=== PATIENT | male | born 1950 | race African-American/Black ===

== ENCOUNTER → 2017-10-09 | Outpatient (CLI) | payer OTHER ==
--- NOTE | 2017-10-09 14:36 | KCIC ---
Indication: Left ankle and foot swelling. Time of exam 12:56 PM 3 views of the left ankle were obtained. Diffuse soft tissue swelling is noted. Ankle mortise is well maintained. The talar dome is smooth. No fracture or dislocation is identified. There are vascular calcifications present. IMPRESSION: Soft tissue swelling. No acute bony abnormality is detected. Electronically signed by: Nazario Lerner MD (10/09/2017 2:33 PM) [id number]
--- NOTE | 2017-10-09 14:39 | KCIC ---
Indication: Left foot swelling. Time of exam 1:02 PM Multiple views of the left foot were obtained. There is dorsal soft tissue swelling. The metatarsals and phalanges appear intact. Midfoot and hindfoot are unremarkable. No fractures are seen. There are vascular calcifications. IMPRESSION: Soft tissue swelling. No acute bony abnormality is detected. Electronically signed by: Nazario Lerner MD (10/09/2017 2:35 PM) [id number]
== END | disposition home or self-care (01) ==
LOC: KCIC 12:39
PROVIDERS: ATTEND Family Medicine
DX: M79.89 Other specified soft tissue disorders (principal); M25.472 Effusion, left ankle
CPT/HCPCS: 73610; 73630

== ENCOUNTER 2021-07-06 10:30 | Emergency (ER) | payer MEDICARE, OTHER ==
[~2021-07-06] VITALS: Ht 180.3 cm; Wt 75.5 kg
--- NOTE | 2021-07-06 11:38 | RAD ---
Chest AP. HISTORY: Syncopal episode, seizure-like activity AP view was taken of the chest. Heart is normal in size. There is no pleural effusion. There is an ev entration of the right diaphragm. There are no confluent infiltrates. There is arthritis in both shou lders. There is a density behind the heart probably a hiatus hernia. IMPRESSION: 1. Retrocardiac density possible hiatus hernia. 2. No acute infiltrates. Electronically signed by: Sedrick Pepe MD (07/06/2021 11:36 AM) [facility]
--- NOTE | 2021-07-06 11:59 | RAD ---
CT HEAD AND C-SPINE WO Date: 07/06/2021 11:22 AM Clinical Indication: Fall yesterday left scalp contusion, seizure-like activity today , pain Comparison: None. Technique: CT of the head and cervical spine were obtained of the head without contrast. These were v iewed on brain and bone windows. One or more of the following dose reduction techniques were utilized : Automated exposure control (AEC), Adjustment of mA and/or kV according to patient size, Use of iter ative reconstruction technique such as ASiR, CT scan done according to ALARA and image gently/image w isely FINDINGS: Head: Mild generalized cerebral and cerebellar volume loss. Mild nonspecific periventricular hypoattenuatio n, most commonly seen with chronic small vessel ischemic disease. Calcified atherosclerosis of the bi lateral cavernous and paraclinoid internal carotid arteries and intracranial vertebral arteries. Large area of right MCA territory encephalomalacia with ex vacuo dilatation of the right lateral vent ricle. No intra- or extra-axial mass or fluid collection. No acute hemorrhage. The guerin-white matter junctio n is normal. The subarachnoid cisterns are patent. The visualized paranasal sinuses are normal. The visualized portions of the orbits and globes are no rmal. The mastoid air cells are clear. Spine: The cervical spine is normally aligned. Postsurgical changes of ACDF at C5-6. No acute fracture. No a ggressive lytic or blastic osseous lesions. Severe multilevel degenerative disc space height loss. Multilevel mild and moderate spinal canal sten osis secondary to disc protrusions and marginal osteophytes. Multilevel moderate to severe neuroforam inal narrowing secondary to uncovertebral arthrosis. Multilevel moderate to severe facet arthrosis. The thyroid gland is normal. No cervical lymphadenopathy. Bilateral carotid atherosclerosis, heavy on the right. The visualized aerodigestive tract is normal. The visualized portions of the lungs are clear. Impression: 1. No acute intracranial process. 2. No acute cervical spine fracture. 3. Large area of right MCA territory encephalomalacia with ex vacuo dilatation of the right lateral v entricle. Electronically signed by: Jacques Trejo MD (07/06/2021 11:57 AM) [id number]
--- NOTE | 2021-07-06 12:25 | EKG ---
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
--- NOTE | 2021-07-06 12:51 | PHYS DOC ---
Past Medical History Additional Past Medical Histor: HEPATITIS C, EPILEPSY, ULCERATIVE COLITIS (NAEEM MONTES APRN) Past Surgical History: No Surgical History (NAEEM MONTES APRN) Smoking Status: Unknown if ever smoked Alcohol Use: None (NAEEM MONTES APRN) Attending Signature I have participated in the care of this patient and I have reviewed and agree with all pertinent clinical information above including history, exam, and recommendations. (ANDERSON LEO DO) General Adult EDM: Chief Complaint: SEIZURE HPI: HPI: Patient is a 71 year old male who presents emergency department via EMS with reports of seizure x3 at the detention. EMS career guidance counselor reports patient is not postictal, did not lose bowel or bladder. Had a reported focal seizure that lasted an unknown period of time. Card Cutter Helper reports that detention staff were unable to determine how long he was in the state. Patient is currently alert and oriented x3, reports he remembers being pushed in his wheelchair when he "I blanked out...I woke up in my bed". Patient denies headaches, fever chills, chest pain, abdominal pain, nausea, vomiting, or diarrhea. Patient reports he had a stroke several years ago that affected his left arm and leg and is unable to ambulate, reports using a wheelchair to travel. Patient denies any physical complaints or physical concerns. Patient has a history of [place] seizures and focal seizures Patient does report falling yesterday and striking the left side of his head against the floor. Denies loss of consciousness. States he has a bump on the left side of his head. Denies head or neck pain at this time. 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 (NAEEM MONTES APRN) Review of Systems: Review of Systems: 14 body systems of review of systems have been reviewed. See HPI for pertinent positives and negative responses, otherwise all other systems are negative, nonpertinent or noncontributory. Constitutional: Negative except as outlined in HPI above. Skin: Negative except as outlined in HPI above. Eyes: Negative except as outlined in HPI above. HENT: Negative except as outlined in HPI above. Respiratory: Negative except as outlined in HPI above. Cardiovascular: Negative except as outlined in HPI above. GI: Negative except as outlined in HPI above. : Negative except as outlined in HPI above. Musculoskeletal: Negative except as outlined in HPI above. Integument: Negative except as outlined in HPI above. Neurologic: Negative except as outlined in HPI above. Endocrine: Negative except as outlined in HPI above. Lymphatic: Negative except as outlined in HPI above. Psychiatric: Negative except as outlined in HPI above. (NAEEM MONTES APRN) Heart Score: C/O Chest Pain: No Risk Factors: Risk Factors: DM, Current or recent (<one month) smoker, HTN, HLP, family history of CAD, obesity. Risk Scores: Score 0 - 3: 2.5% MACE over next 6 weeks - Discharge Home Score 4 - 6: 20.3% MACE over next 6 weeks - Admit for Clinical Observation Score 7 - 10: 72.7% MACE over next 6 weeks - Early Invasive Strategies (NAEEM MONTES APRN) Allergies: Allergies: Allergies Coded Allergies Type Severity Reaction Last Updated Verified lactose Adverse Reaction Unknown 07/06/21 Yes (NAEEM MONTES APRN) Physical Exam: PE: Constitutional: Well developed, well nourished, no acute distress, non-toxic appearance. 71-year-old male in no apparent distress. HENT: Normocephalic, atraumatic. Eyes: Conjunctiva normal, no discharge. Neck: Normal range of motion, no stridor. Cardiovascular: No cyanosis appreciated, distal cap refill less than 2 seconds. Lungs & Thorax: Patient is in no respiratory distress, no audible adventitious lung sounds appreciated. Abdomen: Nontender, no abnormalities noted. Skin: Warm, dry, no erythema, no rash. Back: No tenderness, no deformities. Extremities: No tenderness, no cyanosis, no clubbing, ROM intact, no edema. Except for left upper and lower extremity contractures related to old CVA. Neurologic: Alert and oriented X 3, normal motor function, normal sensory f unction, no focal deficits noted. Psychologic: Affect normal, judgement normal, mood normal. (NAEEM MONTES APRN) Current Patient Data: Vital Signs: Vital Signs Date Time Temp Pulse Resp B/P (MAP) Pulse Ox O2 Delivery O2 Flow Rate FiO2 07/06/21 10:30 98.2 92 20 130/73 95 Room Air 98.2 (NAEEM MONTES APRN) EKG: EKG: EKG performed at 1203 by ED nursing staff shows a normal sinus rhythm without other ectopy, heart rate is 78 bpm, [place] interval 0.174, QTc interval 0.501, no acute STEMI, no ACS, no acute ischemia appreciated, EKG interpreted by ED attending physician Dr. Leo (NAEEM MONTES APRN) Radiology/Procedures: Radiology/Procedures: PATIENT: SCOTT HE EACCOUNT: [id number] : 1950 LOCATION: ER AGE: 71 SEX: M EXAM STATUS: REG ER ORD. PHYSICIAN: NAEEM MONTES APRN REASON: Seizure-like activity/syncopal episode PROCEDURE: CHEST AP ONLY Chest AP. HISTORY: Syncopal episode, seizure-like activity AP view was taken of the chest. Heart is normal in size. There is no pleural effusion. There is an eventration of the right diaphragm. There are no confluent infiltrates. There is arthritis in both shoulders. There is a density behind the heart probably a hiatus hernia. IMPRESSION: 1. Retrocardiac density possible hiatus hernia. 2. No acute infiltrates. PROCEDURE: CT HEAD AND CERVICAL SPINE WO CT HEAD AND C-SPINE WO Date: 07/06/2021 11:22 AM Clinical Indication: Fall yesterday left scalp contusion, seizure-like activity today , pain Comparison: None. Technique: CT of the head and cervical spine were obtained of the head without contrast. These were viewed on brain and bone windows. One or more of the following dose reduction techniques were utilized: Automated exposure control (AEC), Adjustment of mA and/or kV according to patient size, Use of iterative reconstruction technique such as ASiR, CT scan done according to ALARA and image gently/image wisely FINDINGS: Head: Mild generalized cerebral and cerebellar volume loss. Mild nonspecific periventricular hypoattenuation, most commonly seen with chronic small vessel ischemic disease. Calcified atherosclerosis of the bilateral cavernous and paraclinoid internal carotid arteries and intracranial vertebral arteries. Large area of right MCA territory encephalomalacia with ex vacuo dilatation of the right lateral ventricle. No intra- or extra-axial mass or fluid collection. No acute hemorrhage. The guerin-white matter junction is normal. The subarachnoid cisterns are patent. The visualized paranasal sinuses are normal. The visualized portions of the orb its and globes are normal. The mastoid air cells are clear. Spine: The cervical spine is normally aligned. Postsurgical changes of ACDF at C5-6. No acute fracture. No aggressive lytic or blastic osseous lesions. Severe multilevel degenerative disc space height loss. Multilevel mild and moderate spinal canal stenosis secondary to disc protrusions and marginal osteophytes. Multilevel moderate to severe neuroforaminal narrowing secondary to uncovertebral arthrosis. Multilevel moderate to severe facet arthrosis. The thyroid gland is normal. No cervical lymphadenopathy. Bilateral carotid atherosclerosis, heavy on the right. The visualized aerodigestive tract is normal. The visualized portions of the lungs are clear. Impression: 1. No acute intracranial process. 2. No acute cervical spine fracture. 3. Large area of right MCA territory encephalomalacia with ex vacuo dilatation o f the right lateral ventricle. (NAEEM MONTES APRN) Course & Med Decision Making: Course & Med Decision Making Pertinent Labs and Imaging studies reviewed. (See chart for details) 71-year-old male, vital signs reviewed, presents emergency department complaining of seizure like activity at detention today. Patient reports remembering having a blackout spell. Will order CT head and C-spine related to patient's reporting falling and striking head on floor yesterday. Patient did complain of a bump on his head however no contusion or skull depression was appreciated during physical examination. The patient did not lose continence of bowel or bladder, was not postictal per report. Will monitor patient for seizure-like activity. Patient's vital signs are currently within normal limits. After 6-hour time of monitoring, the patient did not have any seizure-like activity, remains complaint free, nontoxic in appearance, hemodynamically stable, will transfer back to detention for ongoing detention care. Discussed with the patient all findings and diagnostic testing as well as the need to follow-up with their primary care provider for further evaluation and treatment or return to the ED if any new or worsening symptoms. Strict return precautions were also discussed at length, the patient voiced understanding and agreement with the discharge planning. The patient was nontoxic in appearance, in no apparent distress, and hemodynamically stable at the time of disposition. (NAEEM MONTES APRN) [place] Disclaimer: [place] Disclaimer: This electronic medical record was generated, in whole or in part, using a voice recognition dictation system. (NAEEM MONTES APRN) Departure Departure Impression: Primary Impression: Seizure-like activity Disposition: 01 HOME / SELF CARE / HOMELESS Condition: GOOD Referrals: GRIFFIN IMCHAEL MD (PCP) Patient Instructions: Seizure, Adult Additional Instructions: You were seen today in the emergency department for a seizure-like activity at the detention. You had reported that you fell and struck your head yesterday without examination. A CT scan of your head and neck did not show any concerning findings, no brain bleeds, no bruising of the brain, no broken bones, you do not have a broken neck. You have been monitored for several hours in the emergency department for ongoing seizure-like activity, there was no seizure activity appreciated. I feel it is safe for you to go back to the detention at this time. Please return to the emergency department for worsening symptoms or other concerns. Thank you for visiting our Emergency Department. It was a pleasure taking care of you today in the emergency department and we appreciate you trusting us with your care. If any additional problems come up don't hesitate to return to visit us. Please follow up with your primary care provider so they can plan additional care if needed and know about the problem that you had. If symptoms worsen come back to the Emergency Department. Any concerning symptoms that start such as chest pain, shortness of air, weakness or numbness on one side of the body, running high fevers or any other concerning symptoms return to the ER. EMERGENCY DEPARTMENT GENERAL DISCHARGE INSTRUCTIONS Thank you for coming to [facility] Emergency Department (ED) today and trusting us with you care. We trust that you had a positive experience in our Emergency Department. If you wish to speak to the department management, you may call the Director at [phone]. YOUR FOLLOW UP INSTRUCTIONS ARE FOLLOWS: 1. Do you have a private Doctor? If you do not have a private doctor, please ask for a resource list of physicians or clinics that may be able to assist you with follow up care. 2. The Emergency Physicain has interpreted your x-rays. The X-Ray specialist will also review them. If there is a change in the findings, you will be notified in 48 hours when at all possible. 3. A lab test or culture has been done, your results will be reviewed and you will be notified if you need a change in treatment. ADDITIONAL INSTRUCTIONS AND INFORMATION: 1. Your care today has been supervised by a physician who is specially trained in emergency care. Many problems require more than one evaluation for a complete diagnosis and treatment. We recommend that you schedule your follow up appointment as recommended to ensure complete treatment of you illness or injury. If you are unable to obtain follow up care and continue to have a problem, or if your condition worsens, we recommend that you return to the ED. 2. We are not able to safely determine your condition over the phone nor are we able to give sound medical advice over the phone. For these safety reasons, if you call for medical advice we will ask you to come to the ED for further evaluation. 3. If you have any questions regarding these discharge instructions please call the ED at [phone]. SAFETY INFORMATION: In the interest of safety, wellness, and injury prevention; we encourage you to wear your sealbelt, if you smoke; quite smoking, and we encourage family to use a protective helmet for bicycling and other sporting events that present an increased risk for head injury. IF YOUR SYMPTOMS WORSEN OR NEW SYMPTOMS DEVELOP, OR YOU HAVE CONCERNS ABOUT YOUR CONDITION; OR IF YOUR CONDITION WORSENS WHILE YOU ARE WAITING FOR YOUR FOLLOW UP APPOINTMENT; EITHER CONTACT YOUR PRIMARY CARE DOCTOR, THE PHYSICIAN WHOSE NAME AND NUMBER YOU WERE GIVEN, OR RETURN TO THE ED IMMEDIATELY. NAEEM MONTES APRN Jul 06, 2021 12:51 ANDERSON LEO DO Jul 06, 2021 17:06
[2021-07-06 13:15] LABS: BASO # 0.1 x10^3/uL (0.0-0.2); BASO % 1 % (0-3); EOS # 1.2 x10^3/uL (0.0-0.7); EOS % 26 % (0-3); HEMATOCRIT 39.9 % (39.0-53.0); HEMOGLOBIN 13.4 g/dL (13.0-17.5); LYMPH # 1.4 x10^3/uL (1.0-4.8); LYMPH % 29 % (24-48); MEAN CORPUSCULAR HEMOGLOBIN 29 pg (25-35); MEAN CORPUSCULAR HGB CONC 34 g/dL (31-37); MEAN CORPUSCULAR VOLUME 88 fL (79-100); MONO # 0.6 x10^3/uL (0.0-1.1); MONO % 12 % (0-9); NEUT # 1.6 x10^3/uL (1.8-7.7); NEUT % 32 % (31-73); PLATELET COUNT 207 x10^3/uL (140-400); RED BLOOD COUNT 4.55 x10^6/uL (4.30-5.70); RED CELL DISTRIBUTION WIDTH 13.8 % (11.5-14.5); WHITE BLOOD COUNT 4.8 x10^3/uL (4.0-11.0)
[2021-07-06 13:28] LABS: BILIRUBIN,URINE NEGATIVE (NEG); CLARITY,URINE CLEAR; COLOR,URINE AMBER; NITRITE,URINE NEGATIVE (NEG); PH,URINE 5.5 (<5.0-8.0); PROTEIN,URINE NEGATIVE (NEG-TRACE)
[2021-07-06 13:31] LABS: CALCIUM 9.3 mg/dL (8.5-10.1); CREATININE 0.9 mg/dL (0.7-1.3); GFR 100.4; POTASSIUM 4.3 mmol/L (3.5-5.1)
[2021-07-06 13:37] LABS: ALBUMIN 3.6 g/dL (3.4-5.0); ALBUMIN/GLOBULIN RATIO 0.8 (1.0-1.7); MAGNESIUM 2.2 mg/dL (1.8-2.4); TOTAL BILIRUBIN 0.4 mg/dL (0.2-1.0)
[2021-07-06 13:44] LABS: BACTERIA,URINE 0 /HPF (0-FEW); RBC,URINE 0 /HPF (0-2); WBC,URINE 0 /HPF (0-4)
[2021-07-06 14:39] LABS: % BASOS 1 % (0-3); % EOS 19 % (0-5); % LYMPHS 35 % (24-48); % MONOS 7 % (0-10); % SEGS 38 % (35-66); PLT ESTIMATE ADEQUATE (ADEQUATE)
[2021-07-06 17:09] VITALS: BP 131/64
== END 2021-07-06 17:08 | disposition home or self-care (01) ==
LOC: ER 10:30
DX: R56.9 Unspecified convulsions (principal); R51.9 Headache, unspecified; M54.2 Cervicalgia; Z91.011 Allergy to milk products
CPT/HCPCS: 36415; 70450; 71045; 72125; 80053; 81001; 82553; 83735; 83880; 84100; 84484; 85007; 85025; 87040; 93005; 99285-25

== ENCOUNTER 2021-07-08 11:05 | Emergency (ER) | payer MEDICARE, OTHER ==
[~2021-07-08] VITALS: Ht 182.9 cm; Wt 76.0 kg
[2021-07-08] MEDS ORDERED: levETIRAcetam 500 MG TABLET PO STA (11:36)
[2021-07-08 12:05] LABS: BILIRUBIN,URINE NEGATIVE (NEG); CLARITY,URINE CLEAR; COLOR,URINE AMBER; NITRITE,URINE NEGATIVE (NEG); PROTEIN,URINE NEGATIVE (NEG-TRACE)
[2021-07-08 12:13] LABS: BACTERIA,URINE FEW /HPF (0-FEW); RBC,URINE OCC /HPF (0-2)
[2021-07-08 13:27] LABS: BASO # 0.1 x10^3/uL (0.0-0.2); BASO % 2 % (0-3); EOS # 1.3 x10^3/uL (0.0-0.7); EOS % 26 % (0-3); HEMATOCRIT 38.6 % (39.0-53.0); HEMOGLOBIN 12.8 g/dL (13.0-17.5); LYMPH # 1.3 x10^3/uL (1.0-4.8); LYMPH % 26 % (24-48); MEAN CORPUSCULAR HEMOGLOBIN 29 pg (25-35); MEAN CORPUSCULAR HGB CONC 33 g/dL (31-37); MEAN CORPUSCULAR VOLUME 87 fL (79-100); MONO # 0.5 x10^3/uL (0.0-1.1); MONO % 11 % (0-9); NEUT # 1.7 x10^3/uL (1.8-7.7); NEUT % 36 % (31-73); PLATELET COUNT 209 x10^3/uL (140-400); RED BLOOD COUNT 4.42 x10^6/uL (4.30-5.70); RED CELL DISTRIBUTION WIDTH 13.2 % (11.5-14.5); WHITE BLOOD COUNT 4.9 x10^3/uL (4.0-11.0)
[2021-07-08 13:40] LABS: ANION GAP 8 (6-14); BLOOD UREA NITROGEN 10 mg/dL (8-26); BUN/CREATININE RATIO 11 (6-20); CALCIUM 8.8 mg/dL (8.5-10.1); CARBON DIOXIDE 28 mmol/L (21-32); CHLORIDE 103 mmol/L (98-107); CREATININE 0.9 mg/dL (0.7-1.3); GFR 100.4; GLUCOSE 110 mg/dL (70-99); POTASSIUM 4.5 mmol/L (3.5-5.1); SODIUM 139 mmol/L (136-145)
[2021-07-08 13:46] LABS: ALBUMIN 3.4 g/dL (3.4-5.0); ALBUMIN/GLOBULIN RATIO 0.9 (1.0-1.7); ALK PHOS 122 U/L (46-116); ALT (SGPT) 42 U/L (16-63); AST (SGOT) 37 U/L (15-37); PHENY 3.4 mcg/mL (10.0-20.0); TOTAL BILIRUBIN 0.3 mg/dL (0.2-1.0)
[2021-07-08 14:08] LABS: % BANDS 1 % (0-9); % EOS 22 % (0-5); % LYMPHS 26 % (24-48); % MONOS 11 % (0-10); % SEGS 40 % (35-66); PLT ESTIMATE ADEQUATE (ADEQUATE)
--- NOTE | 2021-07-08 14:55 | PHYS DOC ---
Past Medical History Past Medical History: CVA, Seizure Additional Past Medical Histor: HEPATITIS C, EPILEPSY, ULCERATIVE COLITIS ([facility] PATIENT [facility]SP[facility] ORDERLY) Past Surgical History: Other ([facility]IENT [facility] ORDER[facility]) Smoking Status: Former Smoker Alcohol Use: None ([facility]IENT [facility]SP[facility] ORDER[facility]) General Adult EDM: Chief Complaint: SEIZURE HPI: HPI: Patient is a 71 year old male with history of CVA with left-sided deficits, seizures who presents the ED today to be evaluated for seizure-like activities. Patient states he was having physical therapy today. He states he started sh aking which is a chronic thing for him, he states he had to sit down. alf staff reported to EMS patient had [id number] seizure. Patient states he was awake alert oriented the entire time and does not believe he had a seizure. Patient denies urinating on himself, denies biting his tongue. EMS reports patient was not postictal when they picked him up. Patient states he takes his seizure medicines as prescribed ([facility]IENT [facility] ORDER[facility]) Review of Systems: Review of Systems: Constitutional: Denies fever or chills. [] Eyes: Denies change in visual acuity. [] HENT: Denies nasal congestion or sore throat. [] Respiratory: Denies cough or shortness of breath. [] Cardiovascular: Denies chest pain or edema. [] GI: Denies abdominal pain, nausea, vomiting, bloody stools or diarrhea. [] : Denies dysuria. [] Musculoskeletal: Denies back pain or joint pain. [] Integument: Denies rash. [] Neurologic: Reports seizure-like activity. Denies headache, focal weakness or sensory changes. [] Psychiatric: Denies depression or anxiety. [] ([facility]) Heart Score: C/O Chest Pain: N/A Risk Factors: Risk Factors: DM, Current or recent (<one month) smoker, HTN, HLP, family history of CAD, obesity. Risk Scores: Score 0 - 3: 2.5% MACE over next 6 weeks - Discharge Home Score 4 - 6: 20.3% MACE over next 6 weeks - Admit for Clinical Observation Score 7 - 10: 72.7% MACE over next 6 weeks - Early Invasive Strategies ([facility] PATIENT [facility]SP[facility] ORDERLY) Current Medications: Current Medications Medications (Trade) Dose Ordered Sig/Joi Start Time Stop Time Status Last Admin Dose Admin Levetiracetam (Keppra) 1,000 mg 1X STAT 07/08/21 11:36 07/08/21 11:37 DC 07/08/21 11:36 1,000 MG ([facility]IENT [facility] ORDER[facility]) Allergies: Allergies: Allergies Coded Allergies Type Severity Reaction Last Updated Verified lactose Adverse Reaction Unknown 07/08/21 Yes ([facility]) Physical Exam: PE: Constitutional: Well developed, well nourished, no acute distress, non-toxic appearance. [] HENT: Normocephalic, atraumatic, bilateral external ears normal, oropharynx moist, no oral exudates, nose normal. [] Eyes: PERRLA, EOMI, conjunctiva normal, no discharge. [] Neck: Normal range of motion, no tenderness, supple, no stridor. [] Cardiovascular:Heart rate regular rhythm, no murmur [] Lungs & Thorax: Bilateral breath sounds clear to auscultation [] Abdomen: Bowel sounds normal, soft, no tenderness, no masses, no pulsatile masses. [] Skin: Warm, dry, no erythema, no rash. [] Back: No tenderness, no CVA tenderness. [] Extremities: No tenderness, no cyanosis, no clubbing, left upper and lower extremity stiffness from previous CVA Neurologic: Alert and oriented X 3, normal motor function, normal sensory function, no focal deficits noted. Cranial nerves II through XII intact Psychologic: Affect normal, judgement normal, mood normal. [] ([facility]IENT [facility] ORDER[facility]) Current Patient Data: Labs: Laboratory Tests Test 07/08/21 11:21 07/08/21 12:41 Urine Collection Type Unknown Urine Color Marija Urine Clarity Clear Urine pH 6.0 (<5.0-8.0) Urine Specific [place] >=1.030 (1.000-1.030) Urine Protein Negative mg/dL (NEG-TRACE) Urine Glucose (UA) Negative mg/dL (NEG) Urine Ketones (Stick) Trace mg/dL (NEG) Urine Blood Negative (NEG) Urine Nitrite Negative (NEG) Urine Bilirubin Negative (NEG) Urine Urobilinogen Dipstick 2.0 mg/dL (0.2 mg/dL) Urine Leukocyte Esterase Trace (NEG) Urine RBC Occ /HPF (0-2) Urine WBC 1-4 /HPF (0-4) Urine Squamous Epithelial Cells Many /LPF Urine Bacteria Few /HPF (0-FEW) Urine Mucus Marked /LPF White Blood Count 4.9 x10^3/uL (4.0-11.0) Red Blood Count 4.42 x10^6/uL (4.30-5.70) Hemoglobin 12.8 g/dL (13.0-17.5) L Hematocrit 38.6 % (39.0-53.0) L Mean Corpuscular Volume 87 fL (79-100) Mean Corpuscular Hemoglobin 29 pg (25-35) Mean Corpuscular Hemoglobin Concent 33 g/dL (31-37) Red Cell Distribution Width 13.2 % (11.5-14.5) Platelet Count 209 x10^3/uL (140-400) Neutrophils (%) (Auto) 36 % (31-73) Lymphocytes (%) (Auto) 26 % (24-48) Monocytes (%) (Auto) 11 % (0-9) H Eosinophils (%) (Auto) 26 % (0-3) H Basophils (%) (Auto) 2 % (0-3) Neutrophils # (Auto) 1.7 x10^3/uL (1.8-7.7) L Lymphocytes # (Auto) 1.3 x10^3/uL (1.0-4.8) Monocytes # (Auto) 0.5 x10^3/uL (0.0-1.1) Eosinophils # (Auto) 1.3 x10^3/uL (0.0-0.7) H Basophils # (Auto) 0.1 x10^3/uL (0.0-0.2) Segmented Neutrophils % 40 % (35-66) Band Neutrophils % 1 % (0-9) Lymphocytes % 26 % (24-48) Monocytes % 11 % (0-10) H Eosinophils % 22 % (0-5) H Platelet Estimate Adequate (ADEQUATE) Sodium Level 139 mmol/L (136-145) Potassium Level 4.5 mmol/L (3.5-5.1) Chloride Level 103 mmol/L (98-107) Carbon Dioxide Level 28 mmol/L (21-32) Anion Gap 8 (6-14) Blood Urea Nitrogen 10 mg/dL (8-26) Creatinine 0.9 mg/dL (0.7-1.3) Estimated GFR (Cockcroft-Gault) 100.4 BUN/Creatinine Ratio 11 (6-20) Glucose Level 110 mg/dL (70-99) H Lactic Acid Level 1.2 mmol/L (0.4-2.0) Calcium Level 8.8 mg/dL (8.5-10.1) Total Bilirubin 0.3 mg/dL (0.2-1.0) Aspartate Amino Transferase (AST) 37 U/L (15-37) Alanine Aminotransferase (ALT) 42 U/L (16-63) Alkaline Phosphatase 122 U/L (46-116) H Total Protein 7.0 g/dL (6.4-8.2) Albumin 3.4 g/dL (3.4-5.0) Albumin/Globulin Ratio 0.9 (1.0-1.7) L Phenytoin (Dilantin) Level 3.4 mcg/mL (10.0-20.0) L Phenytoin Last Dose Date 07/07/21 Phenytoin Last Dose Time 2100 Laboratory Tests 07/08/21 12:41 Laboratory Tests 07/08/21 12:41 Vital Signs: Vital Signs Date Time Temp Pulse Resp B/P (MAP) Pulse Ox O2 Delivery O2 Flow Rate FiO2 07/08/21 14:03 69 16 98 07/08/21 11:24 98.5 100/75 98.5 ([facility] APRN) EKG: EKG: [] ([facility] APRN) Radiology/Procedures: Radiology/Procedures: [] ([facility] APRN) Course & Med Decision Making: Course & Med Decision Making Pertinent Labs and Imaging studies reviewed. (See chart for details) This is a 71-year-old male patient presented to the ED today to be evaluated for seizure-like activities. See HPI. Patient was going through physical therapy when he started shaking and sat down. He was awake alert and oriented the entire time. He has no recollection of the whole event. alf reports patient had a 10-minute seizure which patient denies. CBC with a normal WBC, hemoglobin 12.8 HCT 38.6. Dilantin level 3.4 He is on dilantin and keppra and states he does not miss any dose. CMP with no acute findings. Lactic 1.2. D/c to care home. ([facility] APRN) Course & Med Decision Making I have reviewed and was available for consultation in the emergency department for this patient that was seen by midlevel provider. Agree with plan. Sergio Ashley DO (SERGIO ASHLEY DO) Dragon Disclaimer: Dragon Disclaimer: This electronic medical record was generated, in whole or in part, using a voice recognition dictation system. ([facility] APRN) Departure Departure Impression: Primary Impression: Seizure-like activity Disposition: HOME / SELF CARE / HOMELESS Condition: STABLE Referrals: GRIFFIN MICHAEL MD (PCP) Follow-up next week DIPAK STEVENS MD Follow-up next week Patient Instructions: Seizure, Adult Additional Instructions: You were evaluated in the emergency room. We encourage you to continue taking your seizure medicines as prescribed. Please follow-up with your primary care doctor and neurologist. [facility]WE[facility]EN[facility] APRN Jul 08, 2021 14:55 SERGIO ASHLEY DO Jul 08, 2021 16:07
[2021-07-08 17:20] VITALS: BP 154/79
[2021-07-08] MEDS ORDERED: LIDOCAINE 1%/EPI 1:100,000 20 ML VIAL. INJ ONE (17:30)
[2021-07-08] MEDS ORDERED: LIDOCAINE/EPI/TETRACAINE TOPICAL GEL 3 ML. TP ONE (17:30)
--- NOTE | 2021-07-08 18:10 | RAD ---
EXAMINATION: CT MAXILLOFACIAL WITHOUT CONTRAST, CT HEAD AND C-SPINE WO. INDICATION:71 years, Male, fall, forehead laceration. COMPARISON: None. TECHNIQUE: Axial CT images of the head without contrast. These were viewed on brain and bone windows. Axial CT images of the face were obtained without contrast. Axial and coronal reconstruction was per formed. CT imaging of the cervical spine was performed without contrast. Coronal and sagittal reforma tted images were performed. Exposure: One or more of the following individualized dose reduction techniques were utilized for thi s examination: 1. Automated exposure control 2. Adjustment of the mA and/or kV according to patient size 3. Use of iterative reconstruction technique. CT HEAD FINDINGS: Large encephalomalacia in the right cerebral hemisphere, associated with mild ex vacuo dilation of th e adjacent ventricle. Mild brain parenchymal volume loss. No intra- or extra-axial mass or fluid alberto ection. No acute hemorrhage. The ventricles are normal in size, shape, and morphology. The guerin-white matter junction is normal. The basilar cisterns are patent. Forehead laceration with small scalp hem atoma. The mastoid air cells are clear. No aggressive osseous lesion or fracture. CT FACE FINDINGS: There is no acute facial bone fracture. Mucosal thickening in the right frontal sinuses. Remaining paranasal sinuses are clear. The orbits ar e normal. The globes are intact. The nasal septum is mostly midline. The ostiomeatal complexes are na rrow but patent. CT CERVICAL SPINE FINDINGS: The cervical spine is normally aligned. No acute fracture. No aggressive lytic or blastic osseous les ion. Severe multilevel degenerative changes with disc space narrowing and marginal osteophytes. Anterior h ardware fusion at C5-6 with disc spacer. No high-grade spinal canal stenosis. The thyroid gland is normal. No cervical lymphadenopathy. The visualized aerodigestive tract is unrem arkable. The visualized lung apices are clear. Impression: 1. No acute intracranial process. 2. No acute facial bone fracture. 3. No acute osseous abnormality of the cervical spine. 4. Forehead laceration with small scalp hematoma. 5. Large encephalomalacia nearly involving entire right cerebral hemisphere. Electronically signed by: Shane Carroll MD (07/08/2021 6:08 PM) [facility]
== END 2021-07-08 21:20 | disposition home or self-care (01) ==
LOC: ER 11:05
DX: S01.81XA Laceration without foreign body of other part of head, initial encounter (principal); R56.9 Unspecified convulsions; Z86.73 Personal history of transient ischemic attack (TIA), and cerebral infarction without residual deficits; Z91.011 Allergy to milk products; W06.XXXA Fall from bed, initial encounter; Y93.89 Activity, other specified; Y92.89 Other specified places as the place of occurrence of the external cause; Y99.8 Other external cause status
CPT/HCPCS: 12015; 70450; 70486; 72125; 80053; 80177; 80185; 81001; 83605; 85007; 85025; 87086; 99285; J3490